=== PATIENT | female | born 1985 | race Caucasian/White ===

== ENCOUNTER 2016-08-21 09:56 | Inpatient (IN) | payer BC, MEDICARE ==
[~2016-08-21] VITALS: Ht 165.1 cm; Wt 90.3 kg
[2016-08-21] VITALS (7 sets, daily range): BP systolic 102–132; BP diastolic 67–90
--- NOTE | ~2016-08-21 | PR ---
[place], [place] PROGRESS NOTE NAME: SHARON HUTTON UNIT #: [id number] ROOM: 404 DOCTOR: JAIME BENAVIDES MD BIRTHDATE: [birth year] DOS: 08/22/2016 REASON FOR VISIT: Chest pain and cardiomyopathy. SUBJECTIVE: The patient is feeling better. Denied any for the chest pain, no palpitations, no dizziness, no edema, no orthopnea, no fever or chills, no nausea or vomiting. REVIEW OF SYSTEMS: Review of the 8 systems negative except as mentioned above. PHYSICAL EXAMINATION: VITAL SIGNS: Blood pressure 120/70, pulse 18, respirations 20. GENERAL: Alert, comfortable, in no acute distress. HEAD AND NECK: Pupils are round and equal. No jaundice. CHEST: Symmetrical, nontender. LUNGS: Clear to auscultation. HEART: Benign, nontender. ABDOMEN: Bowel sounds normal. EXTREMITIES: Showed no edema. Distal pulses are palpable. SKIN: Warm and dry. No cyanosis, no clubbing. NEUROLOGIC: The patient is alert, oriented. No focal neurologic deficit. IMPRESSION: 1. Chest pain, atypical, myocardial infarction ruled out. 2. History of cardiomyopathy. 3. Obesity. RECOMMENDATIONS: 1. Continue current medication. 2. Schedule for a stress test to rule out ischemia due to her chest pain and coronary disease risk factors. 3. She is anticipating discharge early. 4. Further recommendations will be based on her stress test findings. If the stress test is unremarkable, then she will be scheduled for her surgical procedure. [place], [place] PROGRESS NOTE NAME: SHARON HUTTON UNIT #: [id number] ROOM: 404 DOCTOR: JAIME BENAVIDES MD BIRTHDATE: [birth year] JAIME BENAVIDES MD CM:PNTRANS [id number] JAIME BENAVIDES MD 08/23/16 0503 interface
--- NOTE | ~2016-08-21 | ST ---
[place], [place] EXERCISE STRESS TEST REPORT NAME: [facility]ON HUTTON [facility] [id number] UNIT #: [id number] ROOM: 404 DOCTOR: MAKAYLA PRATT,JAIME BIRTHDATE: [birth year] DOS: 08/22/2016 REASON FOR TEST: Chest pain. PHYSICAL EXAMINATION: NECK: Supple. LUNGS: Clear anteriorly. HEART: Regular rhythm. PROTOCOL: Dami protocol. Total stress time 5 minutes. Maximum heart rate 171, which is 90% of target heart rate. Peak blood pressure 138/80, adequate response. Total METs 5.6 mets. Santiago treadmill score of +5. SYMPTOMS: The patient developed some chest discomfort, resolved without intervention. EKG: Resting EKG shows sinus rhythm with T inversion V1 to V3 and occasional PVCs. Stress EKG showed no new ischemia, no arrhythmias. CONCLUSION: Clinically, the patient developed mild chest pain, resolved. EKG, no new ischemia compared to baseline. POST-STRESS COMPLICATIONS: None. JAIME BENAVIDES MD CM:STRESS:EXERCISE STRESS TEST REPORT [id number] JAIME BENAVIDES MD
--- NOTE | ~2016-08-21 | CON ---
[place], [place] REPORT OF CONSULTATION NAME: SHARON HUTTON UNIT #: [id number] ROOM: 404 DOCTOR: MAKAYLA PRATT,JAIME BIRTHDATE: [birth year] DOS: 08/21/2016 ADDENDUM CONSULTING PHYSICIAN: Dr. Salazar. REASON FOR CONSULTATION: Chest pain and cardiomyopathy. I personally examined the patient. Rhythm strips, labs and past medical history reviewed. This note is an addendum to the note dictated by Dr. Orlin Steel. His examination, assessment reflects my work. The patient admitted intermittent chest pain. She has history of ____ cardiomyopathy on appropriate medications. PHYSICAL EXAMINATION: HEART: Focused cardiac exam shows heart with regular rhythm, no S3, grade 1/6 systolic murmur. LUNGS: Clear to auscultation. EXTREMITIES: Showed no edema. LABORATORY DATA: EKG shows sinus rhythm with anterior ST-T changes. DIAGNOSTIC IMPRESSION: 1. Chest pain, rule out myocardial infarction. 2. History of cardiomyopathy on appropriate medications. 3. Abnormal EKG with anterior ST-T changes. RECOMMENDATIONS: Cycle her cardiac enzymes. Continue current medications. If cardiac enzymes are unremarkable, then we will schedule for exercise nuclear stress test tomorrow. Continue her current cardiac medications including beta blockers and ARBs. Monitor heart rate and blood pressures. JAIME BENAVIDES MD CM:CONSTR:REPORT OF CONSULTATION 18 08/22/161958 interface
[~2016-08-21 09:56] MED LIST: BENTYL PO; CARAFATE1 G1 PO; CELEXA40 MG PO; CIPRO250 MG PO; CIPROFLOXACIN500 MG PO; FLEXERIL5 MG PO; LIPITOR20 MG PO; LOSARTAN POTASS25 M1 PO; MACROBID100 M1 PO; METFORMIN500 MG PO; METOPROLOL SUCC25 M2 PO; MOTRIN800 MG PO; NAPROSYN500 MG PO; ORTHO TRI-CYCLE1 TA1 PO; PRAVASTATIN SOD10 MG PO; PRILOSEC40 MG PO; PYRIDIUM200 MG PO; SEROQUEL XR200 MG PO; SEROQUEL XR300 MG PO; SEROQUEL100 MG PO; SEROQUEL200 MG PO; SEROQUEL400 MG PO; SYNTHROID,LEV100 MCG PO; SYNTHROID0.112 MG PO; SYNTHROID0.137 MG PO; TRAMADOL HCL50 MG PO; ULTRAM50 MG PO; VOLTAREN50 M1 PO; ZOFRAN4 MG PO
[2016-08-21] MEDS ORDERED: LEXAPRO20 MG PO (10:10)
[2016-08-21] MEDS ORDERED: COZAAR25 M1 PO (10:10)
[2016-08-21 10:21] LABS: BASO % 0.5 % (0.0-1.0); EOS # 0.2 10*3/uL (0.0-0.4); EOS % 3.5 % (1.0-4.0); HEMATOCRIT 34.7 % (37.0-47.0); HEMOGLOBIN 11.4 g/dl (12.0-16.0); LYMPH # 1.9 10*3/uL (1.3-4.4); LYMPH % 30.6 % (27.0-41.0); MEAN CELL VOLUME 78.7 fl (81.0-99.0); MEAN CORPUSCULAR HGB 25.9 pg (27.0-31.0); MEAN CORPUSCULAR HGB CONC 32.9 g/dl (33.0-37.0); MONO # 0.5 10*3/uL (0.1-1.0); MONO % 7.6 % (3.0-9.0); NEUT # 3.6 10*3/uL (2.3-7.9); NEUT % 57.6 % (47.0-73.0); PLATELET COUNT AUTOMATED 242 10*3/uL (130-400); RED BLOOD COUNT 4.41 10*6/uL (4.10-5.10); RED CELL DISTRI WIDTH 13.3 % (0-14.5); WHITE BLOOD COUNT 6.2 10*3/uL (4.8-10.8)
[2016-08-21 10:33] LABS: INTERNATIONAL NORM RATIO 0.9 (2.0-3.5)
[2016-08-21 10:36] LABS: ALBUMIN 3.6 gm/dl (3.1-4.5); ALKALINE PHOSPHATASE 91 U/L (45-117); BILIRUBIN, TOTAL 0.2 mg/dl (0.2-1.0); BUN 6 mg/dl (7-24); CARBON DIOXIDE 25 mmol/L (21-32); CHLORIDE 110 mmol/L (98-107); CKMB 1.1 ng/ml (0.5-3.6); CPK 83 U/L (26-192); EST GLOM FILT AFRICAN AMERICAN > 60 ml/min; GLUCOSE 120 mg/dL (65-99); LDH 186 U/L (84-246); MAGNESIUM 2.1 mg/dL (1.5-2.1); POTASSIUM 3.5 mmol/L (3.5-5.1); SGOT/AST 23 IU/L (3-35); SGPT/ALT 53 U/L (12-78); SODIUM 144 mmol/L (136-145); TOTAL PROTEIN 7.7 gm/dL (6.4-8.2)
[2016-08-21 10:38] LABS: TROPONIN I < 0.015 ng/ml (<0.5)
[2016-08-21 10:48] LABS: BILIRUBIN NEGATIVE (NEGATIVE); BLOOD NEGATIVE (NEGATIVE); CLARITY CLEAR (CLEAR); COLOR YELLOW (YELLOW); GLUCOSE NEGATIVE (NEGATIVE); KETONE NEGATIVE (NEGATIVE); LEUKO ESTERASE NEGATIVE (NEGATIVE); NITRITE NEGATIVE (NEGATIVE); PH 6.5 (5.0-9.0); PROTEIN NEGATIVE (NEGATIVE); SPECIFIC GRAVITY <= 1.005 (1.005-1.030); UROBILINOGEN 0.2 E.U./dl (0.2-1.0)
[2016-08-21 10:58] LABS: URINE REFLEX COMMENT NO (NO)
[2016-08-21 18:16] LABS: TROPONIN I < 0.015 ng/ml (<0.5)
[2016-08-22] VITALS: BP 106/68
[2016-08-22 06:24] LABS: BASO % 0.4 % (0.0-1.0); EOS # 0.2 10*3/uL (0.0-0.4); HEMOGLOBIN 10.8 g/dl (12.0-16.0); MEAN CELL VOLUME 78.9 fl (81.0-99.0); MEAN CORPUSCULAR HGB 25.8 pg (27.0-31.0); MEAN CORPUSCULAR HGB CONC 32.7 g/dl (33.0-37.0); MEAN PLATELET VOLUME 10.2 fl (9.6-12.3); MONO # 0.4 10*3/uL (0.1-1.0); NEUT # 2.1 10*3/uL (2.3-7.9); NEUT % 44.4 % (47.0-73.0); PLATELET COUNT AUTOMATED 242 10*3/uL (130-400); RED BLOOD COUNT 4.18 10*6/uL (4.10-5.10); RED CELL DISTRI WIDTH 13.5 % (0-14.5); WHITE BLOOD COUNT 4.6 10*3/uL (4.8-10.8)
[2016-08-22 06:48] LABS: BUN 9 mg/dl (7-24); CARBON DIOXIDE 24 mmol/L (21-32); CHLORIDE 109 mmol/L (98-107); CHOLESTEROL 172 mg/dL (<200); EST GLOM FILT AFRICAN AMERICAN > 60 ml/min; FREE T4 0.93 ng/dl (0.76-1.46); GLUCOSE 99 mg/dL (65-99); HDL CHOLESTEROL 31 mg/dl (40-60); LDL CHOLESTEROL 92 mg/dL (9-159); MAGNESIUM 2.4 mg/dL (1.5-2.1); POTASSIUM 3.5 mmol/L (3.5-5.1); SODIUM 144 mmol/L (136-145); THYROID STIM HORMONE (HS) 0.494 uIU/ml (0.358-4.75); TRIGLYCERIDES 246 mg/dl (<150); VLDL CHOLESTEROL 49 mg/dL (6-40)
[2016-08-22 06:58] LABS: HEMOGLOBIN A1c 5.4 % (4.8-5.6)
[2016-08-22 07:07] LABS: FOLIC ACID 15.73 ng/mL (>5.38)
[2016-08-22 08:00] VITALS: BP 100/60
[2016-08-22 13:00] VITALS: BP 104/64
[2016-08-22 16:00] VITALS: BP 96/52
== END 2016-08-22 17:18 | disposition home or self-care (01) | DRG 313 ==
LOC: ED 09:56 → EDHOLD 11:05 → 4E 11:27
PROVIDERS: Internal Medicine
DX: R07.89 Other chest pain (principal); I42.9 Cardiomyopathy, unspecified; E66.9 Obesity, unspecified; Z88.2 Allergy status to sulfonamides; Z90.49 Acquired absence of other specified parts of digestive tract; Z98.890 Other specified postprocedural states; Z82.49 Family history of ischemic heart disease and other diseases of the circulatory system; Z68.33 Body mass index [BMI] 33.0-33.9, adult; D50.9 Iron deficiency anemia, unspecified; R73.9 Hyperglycemia, unspecified; E03.9 Hypothyroidism, unspecified; F31.9 Bipolar disorder, unspecified; F41.9 Anxiety disorder, unspecified; K58.0 Irritable bowel syndrome with diarrhea

== ENCOUNTER → 2017-07-06 | Outpatient (CLI) | payer BC ==
[~2017-07-06] MED LIST changes: +COZAAR25 M1 PO; +LEXAPRO20 MG PO
== END | disposition home or self-care (01) ==
LOC: LAB 09:29
DX: E55.9 Vitamin D deficiency, unspecified (principal)

== ENCOUNTER → 2017-07-18 | Outpatient (CLI) | payer BC, MEDICARE | END | disposition home or self-care (01) | LOC: US 07-11 10:30 | DX: K76.0 Fatty (change of) liver, not elsewhere classified (principal); Z90.49 Acquired absence of other specified parts of digestive tract; R74.8 Abnormal levels of other serum enzymes ==

== ENCOUNTER 2017-08-29 13:56 | Emergency (ER) | payer BC, MEDICARE ==
[~2017-08-29] VITALS: Ht 165.1 cm; Wt 95.3 kg
[2017-08-29 15:06] LABS: BASO % 0.3 % (0.0-1.0); EOS # 0.2 10*3/uL (0.0-0.4); EOS % 3.1 % (1.0-4.0); HEMATOCRIT 35.6 % (37.0-47.0); HEMOGLOBIN 11.8 g/dl (12.0-16.0); LYMPH # 1.9 10*3/uL (1.3-4.4); LYMPH % 27.6 % (27.0-41.0); MEAN CELL VOLUME 78.6 fl (81.0-99.0); MEAN CORPUSCULAR HGB CONC 33.1 g/dl (33.0-37.0); MONO # 0.5 10*3/uL (0.1-1.0); MONO % 7.5 % (3.0-9.0); NEUT # 4.1 10*3/uL (2.3-7.9); NEUT % 61.2 % (47.0-73.0); PLATELET COUNT AUTOMATED 256 10*3/uL (130-400); RED BLOOD COUNT 4.53 10*6/uL (4.10-5.10); RED CELL DISTRI WIDTH 13.5 % (0-14.5); WHITE BLOOD COUNT 6.7 10*3/uL (4.8-10.8)
[2017-08-29 15:24] LABS: ALBUMIN 3.6 gm/dl (3.1-4.5); ALKALINE PHOSPHATASE 118 U/L (45-117); BUN 9 mg/dl (7-24); CHLORIDE 104 mmol/L (98-107); LIPASE 116 U/L (73-393); POTASSIUM 3.8 mmol/L (3.5-5.1); SGOT/AST 77 IU/L (3-35); SGPT/ALT 104 U/L (12-78); SODIUM 141 mmol/L (136-145); TOTAL PROTEIN 7.7 gm/dL (6.4-8.2)
[2017-08-29 15:26] LABS: TROPONIN I < 0.015 ng/ml (<0.045)
== END 2017-08-29 17:45 | disposition home or self-care (01) ==
LOC: ED 13:56
PROVIDERS: Physician Assistant
DX: R07.9 Chest pain, unspecified (principal); Z98.890 Other specified postprocedural states; Z90.49 Acquired absence of other specified parts of digestive tract; Z79.899 Other long term (current) drug therapy; Z88.1 Allergy status to other antibiotic agents; Z88.8 Allergy status to other drugs, medicaments and biological substances

== ENCOUNTER → 2018-05-30 | Outpatient (CLI) | payer BC | LOC: CARD 09:48 | DX: I08.1 Rheumatic disorders of both mitral and tricuspid valves (principal); I42.9 Cardiomyopathy, unspecified ==

== ENCOUNTER → 2018-08-07 | Outpatient (CLI) | payer BC ==
[~2018-08-07] MED LIST changes: +ATORVASTATIN CA10 M1 PO; +COLESTIPOL HYDRO1 GM PO; +HYDROCODONE-AC1 EAC1 PO; +IBU800 M1 PO
== END | disposition home or self-care (01) ==
LOC: US 17:00
DX: N83.201 Unspecified ovarian cyst, right side (principal); Z90.722 Acquired absence of ovaries, bilateral

== ENCOUNTER 2018-09-24 01:10 | Inpatient (IN) | payer BC, MEDICARE ==
[2018-09-24] VITALS (15 sets, daily range): BP systolic 108–130; BP diastolic 47–89
[~2018-09-24] VITALS: Ht 165 cm; Wt 100.0 kg
[~2018-09-24 01:10] MED LIST changes: -ATORVASTATIN CA10 M1 PO; -HYDROCODONE-AC1 EAC1 PO; -IBU800 M1 PO
[2018-09-24] MEDS ORDERED: ATORVASTATIN CA10 M1 PO (15:58)
[2018-09-24] MEDS ORDERED: IBU800 M1 PO (15:59)
[2018-09-25] VITALS: BP 112/66
[2018-09-25 06:29] LABS: BASO % 0.1 % (0.0-1.0); EOS % 0.1 % (1.0-4.0); HEMATOCRIT 31.8 % (37.0-47.0); LYMPH # 2.1 10*3/uL (1.3-4.4); MEAN CELL VOLUME 82.4 fl (81.0-99.0); MEAN CORPUSCULAR HGB 26.9 pg (27.0-31.0); MEAN CORPUSCULAR HGB CONC 32.7 g/dl (33.0-37.0); MEAN PLATELET VOLUME 10.1 fl (9.6-12.3); MONO # 0.7 10*3/uL (0.1-1.0); MONO % 6.5 % (3.0-9.0); NEUT # 7.2 10*3/uL (2.3-7.9); NEUT % 72.1 % (47.0-73.0); PLATELET COUNT AUTOMATED 239 10*3/uL (130-400); RED BLOOD COUNT 3.86 10*6/uL (4.10-5.10); RED CELL DISTRI WIDTH 13.1 % (0-14.5)
[2018-09-25 06:41] LABS: HEMOGLOBIN 10.4 g/dl (12.0-16.0)
[2018-09-25 08:00] VITALS: BP 118/79; BP 158/69
[2018-09-25] MEDS ORDERED: HYDROCODONE-AC1 EAC1 PO (12:53)
[2018-09-25] MEDS ORDERED: IBU800 M1 PO (12:53)
== END 2018-09-25 13:37 | disposition home or self-care (01) | DRG 743 ==
LOC: SDC 01:10 → 4E 07:09 → SDC 07:30 → 4E 09-25 13:37
PROVIDERS: ADMIT Obstetrics & Gynecology
PROC: 0UT94ZZ Resection of Uterus, Percutaneous Endoscopic Approach (ICD-10-PCS; principal; 2018-09-24)
DX: N93.9 Abnormal uterine and vaginal bleeding, unspecified (principal); N85.7 Hematometra; F41.9 Anxiety disorder, unspecified; F31.9 Bipolar disorder, unspecified; E03.9 Hypothyroidism, unspecified; E66.9 Obesity, unspecified; N94.10 Unspecified dyspareunia; G40.909 Epilepsy, unspecified, not intractable, without status epilepticus; E78.00 Pure hypercholesterolemia, unspecified; K58.9 Irritable bowel syndrome, unspecified; Z90.49 Acquired absence of other specified parts of digestive tract; Z79.899 Other long term (current) drug therapy; Z88.2 Allergy status to sulfonamides; Z82.49 Family history of ischemic heart disease and other diseases of the circulatory system; Z83.3 Family history of diabetes mellitus; Z68.36 Body mass index [BMI] 36.0-36.9, adult

== ENCOUNTER 2019-12-08 09:23 | Emergency (ER) | payer MEDICARE ==
[~2019-12-08] VITALS: Ht 165.1 cm; Wt 96.6 kg
[~2019-12-08 09:23] MED LIST changes: +ATORVASTATIN CA10 M1 PO; +HYDROCODONE-AC1 EAC1 PO; +IBU800 M1 PO
[2019-12-08 09:53] LABS: BASO % 0.2 % (0.0-1.0); EOS # 0.2 10*3/uL (0.0-0.4); EOS % 1.2 % (1.0-4.0); HEMATOCRIT 36.4 % (37.0-47.0); LYMPH # 1.8 10*3/uL (1.3-4.4); LYMPH % 13.6 % (27.0-41.0); MEAN CELL VOLUME 82.7 fl (81.0-99.0); MEAN CORPUSCULAR HGB 26.6 pg (27.0-31.0); MEAN CORPUSCULAR HGB CONC 32.1 g/dl (33.0-37.0); MEAN PLATELET VOLUME 10.1 fl (9.6-12.3); MONO # 0.9 10*3/uL (0.1-1.0); MONO % 7.1 % (3.0-9.0); NEUT # 10.1 10*3/uL (2.3-7.9); NEUT % 77.7 % (47.0-73.0); PLATELET COUNT AUTOMATED 300 10*3/uL (130-400); RED CELL DISTRI WIDTH 13.2 % (0-14.5)
[2019-12-08 10:09] LABS: ALBUMIN 4.1 gm/dl (3.1-4.5); ALKALINE PHOSPHATASE 100 U/L (45-117); BUN 10 mg/dl (7-24); CHLORIDE 105 mmol/L (98-107); CREATININE 0.81 mg/dL (0.55-1.02); POTASSIUM 3.7 mmol/L (3.5-5.1); SGOT/AST 31 IU/L (3-35); SGPT/ALT 46 U/L (12-78); SODIUM 139 mmol/L (136-145); TOTAL PROTEIN 8.5 gm/dL (6.4-8.2)
[2019-12-08 10:39] LABS: BILIRUBIN NEGATIVE (NEGATIVE); BLOOD TRACE-INTACT (NEGATIVE); CLARITY CLOUDY (CLEAR); COLOR YELLOW (YELLOW); GLUCOSE NEGATIVE (NEGATIVE); KETONE NEGATIVE (NEGATIVE); LEUKO ESTERASE 3+ (NEGATIVE); NITRITE POSITIVE (NEGATIVE); SPECIFIC GRAVITY 1.015 (1.005-1.030); UROBILINOGEN 0.2 E.U./dl (0.2-1.0)
[2019-12-08 10:43] LABS: BACTERIA 1+; WBC 16-20 wbc/hpf (0-5)
[2019-12-08] MEDS ORDERED: CEFUROXIME AXE500 MG PO (12:21)
== END 2019-12-08 12:22 | disposition home or self-care (01) ==
LOC: ED 09:23
PROVIDERS: Nurse Practitioner Family
DX: N39.0 Urinary tract infection, site not specified (principal); R56.9 Unspecified convulsions; F32.9 Major depressive disorder, single episode, unspecified; G43.909 Migraine, unspecified, not intractable, without status migrainosus; Z88.2 Allergy status to sulfonamides; Z88.8 Allergy status to other drugs, medicaments and biological substances; Z79.899 Other long term (current) drug therapy; Z79.2 Long term (current) use of antibiotics

== ENCOUNTER 2020-07-30 18:12 | Emergency (ER) | payer MEDICARE ==
[~2020-07-30] VITALS: Ht 165.1 cm; Wt 97.5 kg
[~2020-07-30 18:12] MED LIST changes: +CEFUROXIME AXE500 MG PO
== END 2020-07-30 21:14 | disposition home or self-care (01) ==
LOC: ED 18:12
DX: G43.909 Migraine, unspecified, not intractable, without status migrainosus (principal); R00.2 Palpitations; R07.89 Other chest pain; F41.9 Anxiety disorder, unspecified; F31.9 Bipolar disorder, unspecified; Z88.2 Allergy status to sulfonamides; Z79.899 Other long term (current) drug therapy; Z79.2 Long term (current) use of antibiotics; Z90.49 Acquired absence of other specified parts of digestive tract

== ENCOUNTER 2020-09-20 13:06 | Emergency (ER) | payer MEDICARE ==
[~2020-09-20] VITALS: Ht 165.1 cm; Wt 97.5 kg
[2020-09-20 13:41] LABS: BASO % 0.3 % (0.0-1.0); EOS # 0.2 10*3/uL (0.0-0.4); EOS % 2.5 % (1.0-4.0); HEMATOCRIT 35.9 % (37.0-47.0); LYMPH # 1.8 10*3/uL (1.3-4.4); MEAN CELL VOLUME 79.8 fl (81.0-99.0); MEAN CORPUSCULAR HGB 26.2 pg (27.0-31.0); MEAN CORPUSCULAR HGB CONC 32.9 g/dl (33.0-37.0); MEAN PLATELET VOLUME 10.5 fl (9.6-12.3); MONO # 0.4 10*3/uL (0.1-1.0); MONO % 5.2 % (3.0-9.0); NEUT # 5.1 10*3/uL (2.3-7.9); NEUT % 67.7 % (47.0-73.0); PLATELET COUNT AUTOMATED 291 10*3/uL (130-400); RED CELL DISTRI WIDTH 13.2 % (0-14.5); WHITE BLOOD COUNT 7.5 10*3/uL (4.8-10.8)
[2020-09-20 13:56] LABS: ACT PARTIAL THROMBO TIME 29.7 SECONDS (20.0-32.1)
[2020-09-20 13:59] LABS: ALBUMIN 3.7 gm/dl (3.1-4.5); ALKALINE PHOSPHATASE 101 U/L (45-117); BUN 10 mg/dl (7-24); CHLORIDE 109 mmol/L (98-107); CREATININE 0.76 mg/dL (0.55-1.02); POTASSIUM 3.2 mmol/L (3.5-5.1); SGOT/AST 41 IU/L (3-35); SGPT/ALT 62 U/L (12-78); SODIUM 140 mmol/L (136-145); TOTAL PROTEIN 7.9 gm/dL (6.4-8.2)
[2020-09-20 14:03] LABS: TROPONIN I < 0.015 ng/ml (<0.045)
[2020-09-20 14:45] LABS: BILIRUBIN Negative (Negative); BLOOD Negative (Negative); CLARITY Cloudy (Clear); COLOR Yellow (Yellow); GLUCOSE Negative (Negative); KETONE Negative (Negative); LEUKO ESTERASE Negative (Negative); NITRITE Negative (Negative)
[2020-09-20 14:55] LABS: BACTERIA 2+; RBC 0-2 rbc/hpf (0-2); YEAST TRACE
== END 2020-09-20 20:09 | disposition home or self-care (01) ==
LOC: ED 13:06
PROVIDERS: Nurse Practitioner
DX: E87.6 Hypokalemia (principal); R07.89 Other chest pain; M79.661 Pain in right lower leg; G43.909 Migraine, unspecified, not intractable, without status migrainosus; F32.9 Major depressive disorder, single episode, unspecified; Z88.2 Allergy status to sulfonamides; Z79.2 Long term (current) use of antibiotics; Z79.899 Other long term (current) drug therapy; Z90.49 Acquired absence of other specified parts of digestive tract; Z98.890 Other specified postprocedural states

== ENCOUNTER → 2020-10-04 | Outpatient (CLI) | payer MEDICARE | END | disposition home or self-care (01) | LOC: CARD 12:32 | PROVIDERS: ATTEND Internal Medicine Cardiovascular Disease | DX: I34.0 Nonrheumatic mitral (valve) insufficiency (principal) ==

== ENCOUNTER → 2020-10-18 | Outpatient (CLI) | payer MEDICARE | END | disposition home or self-care (01) | LOC: US 09:35 | PROVIDERS: ATTEND Nurse Practitioner Primary Care | DX: N63.22 Unspecified lump in the left breast, upper inner quadrant (principal); Z90.710 Acquired absence of both cervix and uterus ==

== ENCOUNTER → 2020-11-30 | Outpatient (CLI) | payer MEDICARE | END | disposition home or self-care (01) | LOC: US 13:00 | PROVIDERS: ATTEND Nurse Practitioner Primary Care | DX: N63.0 Unspecified lump in unspecified breast (principal); N64.59 Other signs and symptoms in breast ==

== ENCOUNTER → 2021-09-05 | Outpatient (CLI) | payer OTHER | END | disposition home or self-care (01) | LOC: US 13:00 | PROVIDERS: ATTEND Nurse Practitioner Primary Care | DX: N64.9 Disorder of breast, unspecified (principal); R92.8 Other abnormal and inconclusive findings on diagnostic imaging of breast ==

== ENCOUNTER → 2021-09-21 | Outpatient (CLI) | payer OTHER | LOC: MAMMO 08:00 | PROVIDERS: ATTEND Nurse Practitioner Primary Care | DX: N63.0 Unspecified lump in unspecified breast (principal); Z80.3 Family history of malignant neoplasm of breast; R92.8 Other abnormal and inconclusive findings on diagnostic imaging of breast ==

== ENCOUNTER → 2021-12-21 | Outpatient (CLI) | payer OTHER ==
[2021-12-21 15:13] LABS: BASO % 0.4 % (0.0-1.0); EOS # 0.1 10*3/uL (0.0-0.4); EOS % 1.9 % (1.0-4.0); HEMATOCRIT 36.9 % (37.0-47.0); LYMPH # 1.9 10*3/uL (1.3-4.4); LYMPH % 28.2 % (27.0-41.0); MEAN CELL VOLUME 79.2 fl (81.0-99.0); MEAN CORPUSCULAR HGB 25.8 pg (27.0-31.0); MEAN CORPUSCULAR HGB CONC 32.5 g/dl (33.0-37.0); MEAN PLATELET VOLUME 10.2 fl (9.6-12.3); MONO # 0.4 10*3/uL (0.1-1.0); MONO % 6.5 % (3.0-9.0); NEUT # 4.3 10*3/uL (2.3-7.9); NEUT % 62.7 % (47.0-73.0); PLATELET COUNT AUTOMATED 258 10*3/uL (130-400); RED BLOOD COUNT 4.66 10*6/uL (4.10-5.10); RED CELL DISTRI WIDTH 13.4 % (0-14.5); WHITE BLOOD COUNT 6.8 10*3/uL (4.8-10.8)
[2021-12-21 15:29] LABS: ALKALINE PHOSPHATASE 103 U/L (45-117); BUN 8 mg/dl (7-24); CHLORIDE 109 mmol/L (98-107); CREATININE 0.77 mg/dL (0.55-1.02); POTASSIUM 3.3 mmol/L (3.5-5.1); SGOT/AST 23 IU/L (3-35); SGPT/ALT 52 U/L (12-78); SODIUM 141 mmol/L (136-145); TOTAL PROTEIN 8.1 gm/dL (6.4-8.2)
[2021-12-22 09:07] LABS: HEPATITIS B SURFACE AB Non Reactive (.); HEPATITIS B SURFACE AG Negative (Negative); HEPATITIS Be ANTIGEN Negative (Negative)
[2021-12-23 18:06] LABS: HEPATITIS C QUANTITATION HCV Not Detected IU/mL (.)
== END | disposition home or self-care (01) ==
LOC: LAB 14:29
PROVIDERS: ATTEND Family Medicine
DX: Z11.59 Encounter for screening for other viral diseases (principal); I10 Essential (primary) hypertension; E78.5 Hyperlipidemia, unspecified; R76.8 Other specified abnormal immunological findings in serum; K76.0 Fatty (change of) liver, not elsewhere classified; E11.9 Type 2 diabetes mellitus without complications; R53.83 Other fatigue; Z72.89 Other problems related to lifestyle; Z79.899 Other long term (current) drug therapy

== ENCOUNTER → 2022-01-08 | Outpatient (CLI) | payer OTHER | END | disposition home or self-care (01) | LOC: US 08:30 | PROVIDERS: ATTEND Family Medicine | DX: R76.8 Other specified abnormal immunological findings in serum (principal); K76.0 Fatty (change of) liver, not elsewhere classified; Z90.49 Acquired absence of other specified parts of digestive tract ==

== ENCOUNTER 2022-12-14 20:14 | Emergency (ER) | payer OTHER ==
[~2022-12-14] VITALS: Ht 165.1 cm; Wt 90.7 kg
[2022-12-14 21:12] LABS: BASO % 0.5 % (0.0-1.0); EOS # 0.2 10*3/uL (0.0-0.4); EOS % 4.1 % (1.0-4.0); HEMATOCRIT 35.9 % (37.0-47.0); LYMPH # 1.3 10*3/uL (1.3-4.4); LYMPH % 22.9 % (27.0-41.0); MEAN CELL VOLUME 79.6 fl (81.0-99.0); MEAN CORPUSCULAR HGB 25.9 pg (27.0-31.0); MEAN CORPUSCULAR HGB CONC 32.6 g/dl (33.0-37.0); MONO # 0.6 10*3/uL (0.1-1.0); MONO % 10.1 % (3.0-9.0); NEUT # 3.6 10*3/uL (2.3-7.9); NEUT % 62.1 % (47.0-73.0); PLATELET COUNT AUTOMATED 241 10*3/uL (130-400); RED BLOOD COUNT 4.51 10*6/uL (4.10-5.10); RED CELL DISTRI WIDTH 13.2 % (0-14.5); WHITE BLOOD COUNT 5.9 10*3/uL (4.8-10.8)
[2022-12-14 21:33] LABS: ALKALINE PHOSPHATASE 99 U/L (46-116); BUN 7 mg/dl (9-23); CHLORIDE 105 mmol/L (98-107); POTASSIUM 3.1 mmol/L (3.4-5.1); SGPT/ALT 29 U/L (10-49); TOTAL PROTEIN 7.8 gm/dL (6.0-8.0)
== END 2022-12-14 22:20 | disposition home or self-care (01) ==
LOC: ED 20:14
PROVIDERS: Internal Medicine
DX: U07.1 COVID-19 (principal); R79.82 Elevated C-reactive protein (CRP); E87.6 Hypokalemia; D64.9 Anemia, unspecified; F32.A Depression, unspecified; G43.909 Migraine, unspecified, not intractable, without status migrainosus; Z88.2 Allergy status to sulfonamides; Z88.8 Allergy status to other drugs, medicaments and biological substances; Z90.49 Acquired absence of other specified parts of digestive tract; Z98.890 Other specified postprocedural states

== ENCOUNTER 2023-03-29 16:34 | Emergency (ER) | payer OTHER ==
[~2023-03-29] VITALS: Ht 167.6 cm; Wt 94.3 kg
[2023-03-29] MEDS ORDERED: DOXYCYCLINE HY100 M3 PO (18:56)
== END 2023-03-29 19:41 | disposition home or self-care (01) ==
LOC: ED 16:34
DX: L03.311 Cellulitis of abdominal wall (principal); Z88.2 Allergy status to sulfonamides; Z79.2 Long term (current) use of antibiotics; Z79.899 Other long term (current) drug therapy; Z98.890 Other specified postprocedural states; Z90.49 Acquired absence of other specified parts of digestive tract

== ENCOUNTER → 2024-02-22 | Outpatient (CLI) | payer BC, OTHER ==
[~2024-02-22] MED LIST changes: +DOXYCYCLINE HY100 M3 PO
[2024-02-22 09:21] LABS: BASO % 0.4 % (0.0-1.0); EOS # 0.2 10*3/uL (0.0-0.4); EOS % 2.5 % (1.0-4.0); LYMPH # 1.9 10*3/uL (1.3-4.4); LYMPH % 27.6 % (27.0-41.0); MONO # 0.4 10*3/uL (0.1-1.0); MONO % 5.2 % (3.0-9.0); NEUT # 4.4 10*3/uL (2.3-7.9); NEUT % 64.2 % (47.0-73.0); WHITE BLOOD COUNT 6.9 10*3/uL (4.8-10.8)
[2024-02-22 09:44] LABS: CHOLESTEROL 235 mg/dL (<200); LDL CHOLESTEROL 156 mg/dL (9-159); TRIGLYCERIDES 214 mg/dl (<150)
== END | disposition home or self-care (01) ==
LOC: LAB 09:03
PROVIDERS: ATTEND Psychiatry & Neurology Psychiatry
DX: Z51.81 Encounter for therapeutic drug level monitoring (principal); Z79.899 Other long term (current) drug therapy

== ENCOUNTER 2024-05-22 18:24 | Emergency (ER) | payer BC, OTHER ==
[~2024-05-22] VITALS: Ht 165.1 cm; Wt 86.2 kg
[2024-05-22] MEDS ORDERED: AMOX-CLAV 875-1 EACH PO (19:33)
[2024-05-22] MEDS ORDERED: Amoxicillin/Clavulanate Pota 875 MG TAB PO ONE (19:35)
== END 2024-05-22 20:00 | disposition home or self-care (01) ==
LOC: ED 18:24
DX: K04.7 Periapical abscess without sinus (principal); Z88.2 Allergy status to sulfonamides; Z79.899 Other long term (current) drug therapy; Z90.49 Acquired absence of other specified parts of digestive tract; Z98.890 Other specified postprocedural states

== ENCOUNTER → 2024-09-08 | Outpatient (CLI) | payer OTHER ==
[~2024-09-08] MED LIST changes: +AMOX-CLAV 875-1 EACH PO
== END | disposition home or self-care (01) ==
LOC: MAMMO 13:00
PROVIDERS: ATTEND Family Medicine
DX: N63.22 Unspecified lump in the left breast, upper inner quadrant (principal); N60.89 Other benign mammary dysplasias of unspecified breast

== ENCOUNTER 2024-10-28 08:49 | Emergency (ER) | payer OTHER ==
[~2024-10-28] VITALS: Wt 74.8 kg
[~2024-10-28 08:49] MED LIST changes: -SYNTHROID0.137 MG PO; +Synthroid,Levo75 MCG PO
[2024-10-28] MEDS ORDERED: KEPPRA500 MG PO (08:58)
[2024-10-28] MEDS ORDERED: DULOXETINE HCL30 MG PO (08:59)
[2024-10-28 09:27] LABS: BASO % 0.4 % (0.0-1.0); EOS # 0.1 10*3/uL (0.0-0.4); EOS % 2.5 % (1.0-4.0); HEMATOCRIT 34.8 % (37.0-47.0); MEAN CELL VOLUME 81.5 fl (81.0-99.0); MEAN CORPUSCULAR HGB CONC 31.9 g/dl (33.0-37.0); MEAN PLATELET VOLUME 10.1 fl (9.6-12.3); MONO # 0.4 10*3/uL (0.1-1.0); MONO % 7.6 % (3.0-9.0); NEUT % 58.5 % (47.0-73.0); PLATELET COUNT AUTOMATED 209 10*3/uL (130-400); RED BLOOD COUNT 4.27 10*6/uL (4.10-5.10); RED CELL DISTRI WIDTH 13.2 % (0-14.5); WHITE BLOOD COUNT 5.1 10*3/uL (4.8-10.8)
[2024-10-28 09:44] LABS: ALKALINE PHOSPHATASE 98 U/L (46-116); BUN 10 mg/dl (9-23); CHLORIDE 105 mmol/L (98-107); POTASSIUM 3.6 mmol/L (3.4-5.1); SGPT/ALT 10 U/L (5-49); TOTAL PROTEIN 7.2 gm/dL (6.0-8.0)
[2024-10-28 09:47] LABS: ACT PARTIAL THROMBO TIME 32.1 SECONDS (20.0-32.1)
[2024-10-28] MEDS ORDERED: Levothyroxine Sodium 75 MCG TAB PO ONE (10:25)
[2024-10-28 12:08] LABS: BILIRUBIN Negative (Negative); BLOOD Negative (Negative); CLARITY Cloudy (Clear); COLOR Yellow (Yellow); GLUCOSE Negative (Negative); KETONE Trace (Negative); LEUKO ESTERASE 2+ (Negative); NITRITE Positive (Negative); PH 5.5 (4.5-8.0); SPECIFIC GRAVITY 1.025 (1.001-1.030)
[2024-10-28 12:17] LABS: URINE AMPHETAMINES Negative (1000ng/ml); URINE BARBITURATES Negative (200ng/ml); URINE BENZODIAZEPINES Negative (200ng/ml); URINE CANNABINOIDS (THC) Negative (50ng/ml); URINE COCAINE Negative (300ng/ml); URINE METHADONE Negative (300ng/ml); URINE OPIATES Negative (300ng/ml); URINE PHENCYCLIDINE Negative (25ng/ml)
[2024-10-28 12:21] LABS: BACTERIA 4+; WBC 51-100 wbc/hpf (0-5)
[2024-10-28] MEDS ORDERED: cefTRIAXone Sodium 1 GM/10 ML SYR IV ONE (12:25)
[2024-10-28] MEDS ORDERED: LISINOPRIL5 MG PO (12:49)
[2024-10-28] MEDS ORDERED: SEROQUEL400 M1 PO (12:50)
[2024-10-28] MEDS ORDERED: PROTONIX40 MG PO (12:51)
[2024-10-28] MEDS ORDERED: LAMICTAL25 MG PO (12:52)
[2024-10-28] MEDS ORDERED: Amitriptyline H10 MG PO (12:52)
[2024-10-28] MEDS ORDERED: ANTIVERT25 M2 PO (12:53)
[2024-10-28] MEDS ORDERED: METOPROLOL SUCCINATE XR 25 MG TAB PO ONE (13:35)
[2024-10-28] MEDS ORDERED: LEVETIRACETAM 500 MG TAB PO ONE (13:35)
[2024-10-28] MEDS ORDERED: TOPROL XL50 M1 PO (15:44)
[2024-10-28] MEDS ORDERED: CEPHALEXIN500 M1 PO (15:44)
== END 2024-10-28 16:04 | disposition home or self-care (01) ==
LOC: ED 08:49
PROVIDERS: Emergency Medicine
DX: R07.2 Precordial pain (principal); R11.0 Nausea; Z95.811 Presence of heart assist device; E78.5 Hyperlipidemia, unspecified; F17.200 Nicotine dependence, unspecified, uncomplicated; Z79.899 Other long term (current) drug therapy; Z90.49 Acquired absence of other specified parts of digestive tract; Z98.890 Other specified postprocedural states

== ENCOUNTER 2024-11-30 03:33 | Emergency (ER) | payer OTHER ==
[~2024-11-30] VITALS: Ht 165.1 cm; Wt 73.9 kg
[~2024-11-30 03:33] MED LIST changes: +ANTIVERT25 M2 PO; +Amitriptyline H10 MG PO; +CEPHALEXIN500 M1 PO; +DULOXETINE HCL30 MG PO; +KEPPRA500 MG PO; +LAMICTAL25 MG PO; +LISINOPRIL5 MG PO; +PROTONIX40 MG PO; +SEROQUEL400 M1 PO; +TOPROL XL50 M1 PO
[2024-11-30 03:53] LABS: BASO % 0.4 % (0.0-1.0); EOS # 0.1 10*3/uL (0.0-0.4); EOS % 2.2 % (1.0-4.0); MEAN CELL VOLUME 80.6 fl (81.0-99.0); MEAN CORPUSCULAR HGB 26.2 pg (27.0-31.0); MEAN CORPUSCULAR HGB CONC 32.5 g/dl (33.0-37.0); MEAN PLATELET VOLUME 9.9 fl (9.6-12.3); MONO # 0.3 10*3/uL (0.1-1.0); MONO % 5.4 % (3.0-9.0); NEUT # 2.9 10*3/uL (2.3-7.9); NEUT % 54.4 % (47.0-73.0); PLATELET COUNT AUTOMATED 183 10*3/uL (130-400); RED BLOOD COUNT 3.97 10*6/uL (4.10-5.10); RED CELL DISTRI WIDTH 13.1 % (0-14.5); WHITE BLOOD COUNT 5.4 10*3/uL (4.8-10.8)
[2024-11-30 04:05] LABS: ACT PARTIAL THROMBO TIME 31.5 SECONDS (20.0-32.1)
[2024-11-30 04:13] LABS: ALKALINE PHOSPHATASE 79 U/L (46-116); BUN 10 mg/dl (9-23); CHLORIDE 108 mmol/L (98-107); POTASSIUM 3.9 mmol/L (3.4-5.1); TOTAL PROTEIN 6.8 gm/dL (6.0-8.0)
[2024-11-30 04:15] LABS: SGPT/ALT < 7 U/L (5-49)
[2024-11-30] MEDS ORDERED: LORazepam 1 MG TAB PO ONE (04:20)
== END 2024-11-30 06:38 | disposition home or self-care (01) ==
LOC: ED 03:33
PROVIDERS: Emergency Medicine
DX: R07.89 Other chest pain (principal); T43.595A Adverse effect of other antipsychotics and neuroleptics, initial encounter; F41.9 Anxiety disorder, unspecified; F31.9 Bipolar disorder, unspecified; E03.9 Hypothyroidism, unspecified; I48.91 Unspecified atrial fibrillation; G43.909 Migraine, unspecified, not intractable, without status migrainosus; E66.9 Obesity, unspecified; Z88.2 Allergy status to sulfonamides; Z79.899 Other long term (current) drug therapy; Z68.30 Body mass index [BMI] 30.0-30.9, adult; Z90.49 Acquired absence of other specified parts of digestive tract; Y92.89 Other specified places as the place of occurrence of the external cause